=== PATIENT | female | born 1955 | race Caucasian/White ===

== ENCOUNTER 2021-03-06 12:47 | Outpatient (CLI) | payer MEDICARE, BC, OTHER, SELFPAY ==
--- NOTE | ~2021-03-06 | CT_ITS ---
EXAMINATION: CT abdomen pelvis wo/w con DATE: 03/06/2021 13:36 INDICATION: Microscopic hematuria TECHNIQUE: Computed tomography (CT) of the abdomen and pelvis was performed without and with 130 cc O mnipaque 350 intravenous contrast. The dose-length product was 823.90 mGy-cm. Automated exposure cont rol and iterative reconstruction technique were employed. COMPARISON: None. FINDINGS: Heart size normal. No significant pleural or pericardial effusion. No significant vascular abnormality. No lymphadenopathy. No renal/ureteral stones or hydronephrosis. Left breast implant part ially visualized. There is hepatic steatosis. The spleen, pancreas, adrenal glands and kidneys are un remarkable. Gallbladder is contracted. Normal appendix. Nonobstructive bowel gas pattern. Colonic div erticulosis without evidence for diverticulitis. Bladder is unremarkable. Small subcentimeter hypoden sity left kidney, likely benign cyst. IMPRESSION: 1. No findings to account for hematuria. Reviewed, dictated and finalized at location A.
--- NOTE | ~2021-03-06 | XR_ITS ---
EXAMINATION: XR abdomen/kub 1V INDICATION: Microscopic hematuria TECHNIQUE: Supine views of the abdomen were obtained on 2 radiographs. COMPARISON: None FINDINGS: No urolithiasis is identified. The bowel gas pattern is normal. There is a moderate volume of colonic stool. There is mild osteoarthritis of the hips. Severe lumbar spondylosis is noted. IMPRESSION: 1. No urolithiasis identified. Reviewed, dictated and finalized at location B.
[2021-03-06 13:22] LABS: Estimated Glomerular Filt Rate > 60
== END 2021-03-06 12:48 | disposition home or self-care (01) ==
PROVIDERS: PCP Family Medicine; Visit Provider Nurse Practitioner Family
DX: R31.29 Other microscopic hematuria (principal)
CPT/HCPCS: 74018; 74178; Q9967

== ENCOUNTER 2021-04-22 14:32 | Emergency (ER) | payer MEDICARE, BC, OTHER, SELFPAY ==
--- NOTE | ~2021-04-22 | XR_ITS ---
EXAMINATION: XR chest 1V portable EXAM DATE: 04/22/2021 16:41 INDICATION: Syncope, Weakness X 2 Days, Headache. TECHNIQUE: Portable AP frontal chest x-ray was obtained. There is no prior study for comparison. FINDINGS: The lungs are hyperinflated which can be seen with chronic obstructive pulmonary disease ( a clinical diagnosis of functional impairment), but is not diagnostic of it. The lungs are clear. Th ere are no pleural effusions. The cardiomediastinal silhouette is within normal limits. There is no pneumothorax suspected. The bones and soft tissues are unremarkable. IMPRESSION: 1. No acute cardiopulmonary findings. 2. Hyperinflation. Reviewed, dictated and finalized at location A.
--- NOTE | ~2021-04-22 | CT_ITS ---
EXAMINATION: CT brain wo con EXAM DATE: 04/22/2021 17:15 INDICATION: Syncope. TECHNIQUE: Spiral CT of the head was performed without contrast. Axial, coronal and sagittal images were reviewed. The dose-length product (DLP) for this examination was 605.33 mGy-cm. The exposure w as tailored according to patient size, and iterative reconstruction (ASIR) was used as additional dos e reduction technique. There is no prior study for comparison. FINDINGS: There is no acute intraparenchymal hemorrhage. No evidence of intraparenchymal brain mass lesion. No evidence of acute infarction. There is no mass effect or midline shift. The ventricles are normal in size. There are no extra-axial collections. There are no acute calvarial fractures. T he orbits are unremarkable. Soft tissue is unremarkable. The visualized sinuses and mastoid air shade ls are well aerated. IMPRESSION: 1. No acute intracranial findings. Reviewed, dictated and finalized at location A.
--- NOTE | ~2021-04-22 | CT_ITS ---
EXAMINATION: CTA chest PE protocol DATE: 04/22/2021 18:06 INDICATION: Pulmonary embolism. Syncopal episode. TECHNIQUE: Computed tomography (CT) pulmonary angiogram of the chest was performed with 100 mL Omnipa que-350 intravenous contrast. Additional 3D reconstructions utilizing coronal maximum intensity proje ction (MIP) were performed. Automated exposure control and iterative reconstruction technique were em ployed. The dose-length product was 169.60 mGy-cm. COMPARISON: None FINDINGS: Good contrast opacification of the pulmonary arteries. There is mild streak artifact from dense contr ast in the superior vena cava and right atrium. No significant respiratory motion artifact yielding d iagnostic quality study which demonstrates no pulmonary embolism. Mild to moderate emphysema with upp er lung predominance. No pneumonia, pulmonary edema or other pulmonary infiltrates. Mild discoid atel ectasis along the inferior right major fissure and mild dependent atelectasis in the bilateral lower lobes. Heart size is normal. No pericardial effusion. Thoracic aorta is normal in caliber with no dis section. No pathologically enlarged thoracic lymphadenopathy. Incompletely visualized left breast imp lant. Small sliding-type hiatal hernia. Visualized upper abdomen is otherwise unremarkable. Mild thor acic dextrocurvature. IMPRESSION: 1. No pulmonary embolism or other acute cardiopulmonary disease. 2. Small sliding-type hiatal hernia. Reviewed, dictated and finalized at location A.
--- NOTE | 2021-04-22 14:35 | ECG_ITS ---
Measurements Intervals [place] Rate: 94 P: 57 PA: 152 QRS: 22 QRSD: 96 T: 50 QT: 357 QTc: 446 Interpretive Statements SINUS RHYTHM POSSIBLE LEFT ATRIAL ENLARGEMENT CANNOT RULE OUT SEPTAL INFARCT, AGE INDETERMINATE ABNORMAL ECG Electronically Signed On 04-22-2021 15:26:36 CDT by Nakul Cabrales D.O.
[2021-04-22 15:04] VITALS: BP 176/93; PULSE 95; RESP 14; TEMP 37.1; O2SAT 99
[2021-04-22 15:21] LABS: Basophils Percent Auto 0.3 % (0.2-1.2); Eosinophils Percent Auto 0.3 % (0-4.4); Hematocrit 40.7 % (37.0-47.0); Hemoglobin 13.3 g/dL (12.0-15.0); Immature Granulocyte Absolute 0.07 K/mm3 (0.00-0.031); Immature Granulocyte Percent A 0.7 % (0-0.5); Lymphocytes Absolute Auto 1.68 K/mm3 (0.9-3.2); Lymphocytes Percent Auto 17.4 % (18.3-44.2); Mean Corpuscular HGB Conc 32.7 g/dl (32-36); Mean Corpuscular Hemoglobin 30.7 pg (26-34); Mean Platelet Volume 8.6 fl (7.4-10.4); Monocytes Absolute Auto 0.6 K/mm3 (0.1-0.6); Monocytes Percent Auto 6.3 % (2.6-8.5); Neutrophils Absolute Auto 7.2 K/mm3 (1.3-6.7); Platelet Count Result 323 k/mm3 (150-375); Red Blood Count 4.33 M/mm3 (4.2-5.4); White Blood Count 9.7 K/mm3 (4.5-10.0)
[2021-04-22 15:29] LABS: Anion Gap 9 mmol/L (8-16); Blood Urea Nitrogen 19 mg/dL (7-17); Calcium 10.1 mg/dL (8.4-10.2); Carbon Dioxide 28 mmol/L (22-30); Chloride 100 mmol/L (98-107); Estimated CRCL calculation 47 ml/min; Estimated Glomerular Filt Rate > 60; Glucose 118 mg/dL (65-105); Potassium 3.6 mmol/L (3.4-5.0); Sodium 137 mmol/L (137-145)
--- NOTE | 2021-04-22 16:43 | ED.GENADULT ---
HPI - General Adult General Chief complaint: Syncope Stated complaint: SYNCOPE X2 LAST NIGHT, MARCH YESTERDAY Time Seen by Provider: 04/22/21 16:29 Source: patient, family and RN notes reviewed Mode of arrival: ambulatory Limitations: no limitations History of Present Illness HPI narrative: Patient is a 65-year-old female who presents after sustaining 2 syncopal episodes last night patient got up in the middle of the night to go to the restroom to have a bowel movement has some slight straining woke up on the ground attempting to go back to bed she sustained a second syncopal episode her was present for this to help her get back in bed and presents to emergency department today in no distress. Patient denies any similar occurrence in the past. Patient notes yesterday she had mild frontal headache which is slightly different for her but denies any other complaints or concerns. Patient is an otherwise healthy individual has had recent urinary tract infection which resolved and now has had some diarrhea of late. Patient presents in no distress per private vehicle normal gait Related Data Home Medications Medication Instructions Recorded Confirmed letrozole 2.5 mg PO DAILY 04/22/21 04/22/21 triamterene-hydrochlorothiazid 1 cap PO DAILY 04/22/21 04/22/21 Allergies Allergy/AdvReac Type Severity Reaction Status Date / Time Penicillins Allergy Unknown Unknown Verified 04/22/21 17:36 Review of Systems Review of Systems: All systems reviewed & are unremarkable except as noted in HPI and below PMFSH Past Medical History Medical History (Updated 04/22/21 @ 18:47 by Wyatt Clark PA-C) Breast cancer Surgical History Surgical History (Updated 04/22/21 @ 16:46 by Wyatt Clark PA-C) H/O cystoscopy History of mastectomy Social History Social History Alcohol intake: current Gender identity (if verbalized by the patient): Female Exam Narrative: Exam Narrative: GENERAL: Well-appearing, well-nourished, and in no acute distress. HEAD: Normocephalic, atraumatic. EYES: PERRLA and EOMI. ENT: Nares clear, no rhinorrhea or epistaxis. Mucous membranes moist. NECK: Supple. No adenopathy or masses. CHEST: Clear to auscultation. No respiratory distress. No wheezes rales or rhonchi HEART: Regular rate and rhythm. No murmur heard. Normal peripheral pulses. ABDOMEN: Soft, nontender, nondistended EXTREMITIES: Normal range of motion. No edema. SKIN: Warm, dry, no rash. NEURO: No focal deficits. Alert and oriented x3. Cranial nerves II through XII grossly intact. Normal speech PSYCH: Normal mood and affect. Course Course Emergency Course: Patient evaluated for 2 syncopal episodes last night hemodynamically stable evaluated the emergency department no high risk changes felt appropriate for outpatient reevaluation with primary care patient agrees with that she is able to ambulate without occultly ABCs and vital signs intact and stable no concerning findings in the evaluation today provided with reasons to return and agrees to do so if symptoms worsen Vital Signs Vital signs: Vital Signs Temperature 98.8 F 04/22/21 15:04 Pulse Rate 95 04/22/21 15:04 Respiratory Rate 14 04/22/21 15:04 Blood Pressure 176/93 H 04/22/21 15:04 Pulse Oximetry 99 04/22/21 15:04 Temperature 98.8 F 04/22/21 15:04 Pulse Rate 100 04/22/21 17:34 Respiratory Rate 18 04/22/21 16:56 Blood Pressure 194/96 H 04/22/21 17:34 Pulse Oximetry 100 04/22/21 16:56 Medical Decision Making MDM Narrative Medical decision making narrative: Patients EKGs and labs are without significant high risk changes. Cardiac risk factors were reviewed. Patient is felt likely to be low risk for ACS and reasonable for further risk stratification testing as an outpatient. No signs or symptoms to suggest aortic dissection. Negative CTA of the chest. There are o focal neurological
[2021-04-22 16:56] VITALS: PULSE 98; RESP 18; O2SAT 100
[2021-04-22 17:13] LABS: Lipase 187 U/L (23-300)
[2021-04-22 17:16] VITALS: PULSE 98
[2021-04-22 17:19] LABS: INR 0.9; Prothrombin Time 12.3 Seconds (11.1-14.7)
[2021-04-22 17:21] LABS: Partial Thromboplastin Time 24.8 SECONDS (22.3-36.8)
[2021-04-22 17:26] LABS: Troponin I < 0.012 ng/mL (0.000-0.034)
[2021-04-22 17:28] LABS: D Dimer 0.92 ug/mL (<0.48)
[2021-04-22 17:33] VITALS: BP 158/87; BP 178/86; PULSE 92; PULSE 94
[2021-04-22 17:33] LABS: Amphetamine Screen Urine Negative (Negative); Barbiturate Screen Urine Negative (Negative); Benzodiazepines Screen Urine Negative (Negative); Cannabinoid Screen Urine Negative (Negative); Cocaine Screen Urine Negative (Negative); Methadone Screen Urine Negative (Negative); Opiate Screen Urine Negative (Negative); Phencyclidine Screen Urine Negative (Negative)
[2021-04-22 17:34] VITALS: BP 194/96; PULSE 100
[2021-04-22 17:35] LABS: Add Urine Microscopic? YES; Appearance Urine Cloudy (Clear); Bilirubin Urine Negative (Negative); Blood Urine Negative (Negative); Color Urine Yellow (Yellow); Glucose Urine UA Negative (Negative); Ketones Urine Negative (Negative); Leukocyte Esterase Ur Trace LEU/UL (Negative); Nitrate Urine Negative (Negative); Protein Urine Negative (Negative); Specific Grav Ur 1.008 (1.001-1.035); Squamous Epithelial Cell Urine Rare /hpf (Few); Urobilinogen Urine Negative mg/dL (<2.0); WBC Urine 0-3 /hpf
[2021-04-22] MEDS: SODIUM CHLORIDE 0.9% IV 1,000 ML 999 ML IV CONT (17:37)
[2021-04-22 19:03] VITALS: BP 158/87; PULSE 75; RESP 18; O2SAT 98
== END 2021-04-22 19:07 | disposition home or self-care (01) ==
PROVIDERS: Emergency Medicine; Emergency Medicine Emergency Medical Services; Emergency Provider Emergency Medicine; PCP Family Medicine
DX: R55 Syncope and collapse (principal); Z85.3 Personal history of malignant neoplasm of breast
CPT/HCPCS: 36415; 70450; 71045; 71275; 80048; 80307; 81001; 81025; 83690; 84484; 85025; 85380; 85610; 85730; 93005; 96360; 99284; J7030; Q9967

== ENCOUNTER 2022-01-05 00:13 | Day surgery (SDC) | payer MEDICARE, BC, OTHER, SELFPAY ==
[2021-12-23 15:09] VITALS: BMI 22.4
[2022-01-05 06:50] VITALS: BP 153/80; PULSE 81; RESP 20; TEMP 35.9; O2SAT 100; BMI 22.1
[2022-01-05] MEDS: LACTATED RINGERS 1,000 ML 150 ML IV CONT (07:00)
--- NOTE | 2022-01-05 07:36 | P.PNAN_ITS ---
Anes - Initial Pre Proc Eval Procedure: Operation Date: 01/05/22 08:00 Proposed Procedures p Screening Colonoscopy - William Balderas MD Date/Time: 01/05/22 07:36 Surgeon: William Balderas MD Pre Op Diagnosis: hx of colon polyps Patient Data Age: 66 Gender: F Height: 1.63 m Weight: 58.5 kg Last Vital Signs Temp 96.7 F L 01/05/22 06:50 Pulse 81 01/05/22 06:50 Resp 20 01/05/22 06:50 BP 153/80 H 01/05/22 06:50 Pulse Ox 100 01/05/22 06:50 Allergies Allergy/AdvReac Type Severity Reaction Status Date / Time Penicillins Allergy Unknown Unknown Verified 01/05/22 06:49 Home Medications Medication Instructions Recorded Confirmed Type letrozole 2.5 mg PO DAILY 04/22/21 01/05/22 History triamterene-hydrochlorothiazid 1 cap PO DAILY 04/22/21 01/05/22 History Patient hx anesthesia problems: none Family hx anesthesia problems: none Results Review: All pre-operative results and documents have been reviewed as part of the pre-operative evaluation. [facility] Past Medical History Medical History (Updated 04/23/21 @ 00:01 by Flynn Butcher) Breast cancer Surgical History Surgical History (Updated 04/22/21 @ 16:46 by Wyatt Clark PA-C) H/O cystoscopy History of mastectomy Social History Social History Years smoked: 8 Smoking status: Current every day smoker Tobacco type: e-cigarettes/vaping Alcohol intake: current Drinks per week: 7 Living arrangements: with family Gender identity (if verbalized by the patient): Female Spiritual care concerns: No Anes - Eval Final PreProcedure Day of Procedure 01/05/22 07:36 Patient weight: normal Heart: regular rate and rhythm Lungs: clear to auscultation Airway: Mallampati scale class II Neurological: alert and oriented Last oral intake: >/= 8 hours ASA classification: III Emergent: no Anesthetic plan: proceed Anesthesia type and monitoring: general GIVS and standard monitoring Results Review: All pre-operative results and documents have been reviewed as part of the pre-operative evaluation. Informed Consent: The patient's anesthetic plan and its attendant risks and benefits were discussed with the patient/family/POA. Questions were solicited and answers provided to the satisfaction of the patient/family/POA.
[2022-01-05 08:04] VITALS: BP 134/69; PULSE 69; RESP 22; O2SAT 100
--- NOTE | 2022-01-05 08:13 | WPDGICN ---
Assessment and Plan Assessment and plan (1) Encounter for screening colonoscopy: Code(s): Z12.11 - Encounter for screening for malignant neoplasm of colon Status: Acute Assessment and Plan: Patient presents today for screening colonoscopy. She appears to be at average risk for colon polyps. Further recommendations will be given after endoscopy. GI Consult Note Consult date/time: 01/05/22 08:13 HPI: Maribel Bradshaw is a 66 year old female Presents for screening colonoscopy. Patient's current weight appetite bowel movements are normal. She denies abdominal pain. She has had no bleeding. Patient's past medical history is significant for hyperplastic polyp removed from the colon 2006. She had a normal colonoscopy in [address] Acevedo. Patient presents today for screening colonoscopy. Patient reports that her current weight appetite bowel movements are normal. She denies abdominal pain. She has had no bleeding. Family history is noncontributory. Review of Systems Review of Systems: All systems reviewed & are unremarkable except as noted in HPI and below PMFSH Past Medical History Medical History (Updated 01/05/22 @ 08:14 by William Balderas MD) Breast cancer Surgical History Surgical History (Updated 04/22/21 @ 16:46 by Wyatt Clark PA-C) H/O cystoscopy History of mastectomy Social History Social History Years smoked: 8 Smoking status: Current every day smoker Tobacco type: e-cigarettes/vaping Alcohol intake: current Drinks per week: 7 Living arrangements: with family Gender identity (if verbalized by the patient): Female Spiritual care concerns: No Meds Home Medications and Allergies Home Medications Medication Instructions Recorded Confirmed Type letrozole 2.5 mg PO DAILY 04/22/21 01/05/22 History triamterene-hydrochlorothiazid 1 cap PO DAILY 04/22/21 01/05/22 History Allergies Allergy/AdvReac Type Severity Reaction Status Date / Time Penicillins Allergy Unknown Unknown Verified 01/05/22 06:49 Vital Signs Vital Signs - 24 hr 01/05/22 06:50 Temperature 96.7 F L Pulse Rate 81 Respiratory Rate 20 Blood Pressure 153/80 H Pulse Oximetry 100 Exam Narrative: Physical exam reveals patient to be alert. Vital signs stable. HEENT exam is unremarkable. Patient is anicteric. Lungs are clear to auscultation and percussion. Heart is without murmur or extra sounds. Abdominal exam bowel sounds are present soft nontender with no organomegaly. Digital external rectal exam is normal.
[2022-01-05 08:44] VITALS: BP 120/68; PULSE 70; RESP 20; O2SAT 100
[2022-01-05 08:54] VITALS: BP 121/72; PULSE 65; RESP 21; O2SAT 100
== END 2022-01-05 09:08 | disposition home or self-care (01) ==
PROVIDERS: PCP Family Medicine; Visit Provider Internal Medicine Gastroenterology
PROC: 0DJD8ZZ Inspection of Lower Intestinal Tract, Via Natural or Artificial Opening Endoscopic (ICD-10-PCS; CPT 45378; principal; 2022-01-05 08:00)
DX: Z12.11 Encounter for screening for malignant neoplasm of colon (principal); D12.5 Benign neoplasm of sigmoid colon; K64.8 Other hemorrhoids; K57.30 Diverticulosis of large intestine without perforation or abscess without bleeding; Z85.3 Personal history of malignant neoplasm of breast; Z90.10 Acquired absence of unspecified breast and nipple; F17.290 Nicotine dependence, other tobacco product, uncomplicated
CPT/HCPCS: 45385; 88305; J2704; J7120

== ENCOUNTER 2025-08-27 14:10 | Outpatient (CLI) | payer MEDICARE, BC, OTHER, SELFPAY ==
--- NOTE | ~2025-08-27 | MM_ITS ---
EXAMINATION: MM screening camilla RT w leda INDICATION: Asymptomatic, referred for screening mammogram. History of Left mastectomy 2010. COMPARISON: None available TECHNIQUE: Full field digital CC, MLO views were obtained of RIGHT breast with computer-aided detection to assist in interpretation of the study. FINDINGS: There are scattered areas of fibroglandular density. No focal dominant mass, architectural distortion, or suspicious microcalcifications are identified. There are no features to suggest malignancy. IMPRESSION: 1. No mammographic evidence of malignancy. 2. Recommend routine screening mammography in one year. BI-RADS Category 1: Negative Reviewed, dictated and finalized at location B. [employer]
== END 2025-08-27 14:11 | disposition home or self-care (01) ==
LOC: ANHFOHIMG 14:12
PROVIDERS: PCP Family Medicine; Visit Provider Family Medicine
DX: Z12.31 Encounter for screening mammogram for malignant neoplasm of breast (principal); Z90.12 Acquired absence of left breast and nipple; Z85.3 Personal history of malignant neoplasm of breast
CPT/HCPCS: 77063; 77067